=== PATIENT | female | born 1935 | race Caucasian/White ===

== ENCOUNTER 2017-10-19 01:05 | Observation (INO) | payer OTHER ==
[~2017-10-19] VITALS: Ht 157.5 cm; Wt 61.7 kg
[~2017-10-19 01:05] MED LIST: AGGRENOX 25 MG1 EACH PO; VYTORIN 10-101 EACH PO
--- NOTE | 2017-10-19 14:48 | Operative Report ---
Operative/Inv Procedure Report Surgery Date: 10/19/17 Name of Procedure: Excision soft tissues face history of melanoma Fasciocutaneous flap forehead Fasciocutaneous flap right cheek Preparation wound bed nose separate and distinct from skin excisions for complete margins Pre-Operative Diagnosis: Nasal skin defect history of recent excisions for melanoma Post-Operative Diagnosis: Same Estimated Blood Loss: scant Surgeon/Class A Lineman: Francis Harris MD Anesthesia: general endotracheal tube Operative/Procedure Note Note: The patient was counseled extensively including numerous phone calls and office visits as well as her daughter in regards to the procedure the alternatives the risks and the excess expectations as relates to her request for surgical intervention to reconstruct a absent nasal skin envelope of the nose. Patient has had recently undergone further biopsies forearm melanoma in situ. We discussed the reconstructive plan today with the additional risks of failure either part or all of the flap definitely visible scarring possibly unsightly or symptomatic numbness in the area of surgery pain bleeding infection need for additional surgery and recurrence we discussed the 2-3 stage plan of a paramedian forehead flap, and a right-sided cheek advancement flap. Patient is aware this will be at least 2 if not 3 stages. Informed consent was signed. She was taken to the operating room placed supine on the table. Venodyne boots are placed and then general anesthesia was established intravenous antibiotics were given. Face was prepped and draped in usual sterile fashion. Was placed on the forehead and tested for rotational length. Used to Doppler the signal in the base of the 1.5 cm wide pedicle. It was kept out of the hairbearing skin and the flap was elevated distal to proximal with a transition from subcutaneous to subperiosteal 2 cm from the brow. She was adequate the color was good. Tension was then turned to the right cheek where a cheek advancement was begun from the inferior portion of the nasal labial fold up the side well and in the cheek eyelid junction extending up to the temporal region. Subcutaneous dissection was carried out. The medial end of the flap consisting of margin as well as scar was further excised. A few basting sutures were placed in the flap to hold it in position to deeper tissues. A Daniel's triangle was removed at the inferior portion of the nasal labial fold and in the temporal area. Additional debridement was carried out of the wound bed in preparation for the flap. For the tissue was excised for insetting including a nasal subunit approach. Distal end of the flap and it was inset. Sutures were placed in summary removed to preserve flow 5-0 chromic suture placed in the skin excision of the cheek advancement flap forehead was closed with 2 layers of sutures with a small portion remaining open for secondary intention. There was absolutely no sure on the pedicle during closure. Further debridement was carried out laterally where scar had encroached on the side wall. Dressings were placed with good flap color.
--- NOTE | 2017-10-19 17:28 | History & Physical ---
Zulma Maninng 10/19/17 5997: General Information and HPI MD Statement: I have seen and personally examined KEV PERALTA and documented this H&P. The patient is a 81 year old F who presented with a patient stated chief complaint of [EKG change]. Source of Information: patient, old records Exam Limitations: no limitations History of Present Illness: Ms. 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 Batista prior to this admission, was found to have some EKG change was PVCs in PACU. During our clinical interaction, patient denied any shortness of breath/chest pain/palpitation, however, and that she had arrhythmia history for years, and may feel palpitations episodically, and has been self resolving. Patient had never been worked up on this. Patient was recently treated by ER of outside hospital for acute colitis with antibiotics and completed course. Patient was diagnosed with TIA, was loss of partial visual field, and she was put on Aggrenox since then, however she was stopped for 3 days prior to surgery without acknowledging her primary care physician. Patient denied fever/night sweat/weight change/mood change/insomnia, dietary/ appetite change. Patient denied cough/SOB/Abdominal pain, bowel movement/urinary abnormality, or other skin/musculoskeletal/neurological disorders. Allergies/Medications Allergies: Coded Allergies: No Known Allergies (10/18/17) Home Med list Dipyridamole W/ Aspirin (Aggrenox 25 MG-200 MG Capsule) 25 MG-200 MG CPMP.12HR 1 CAP PO BID BLOOD THINNER (Reported) Ezetimibe/Simvastatin (Vytorin 10-10 MG Tablet) 10 MG-10 MG TABLET 1 TAB PO DAILY CHOLESTEROL (Reported) Past History Travel History Traveled to [place] past 21 day No Medical History Neurological: TIA, hx of visual field loss 2/2 TIA Cardiovascular: Arrythmias Cancer(s): melanoma Surgical History Surgical History: S/p melanoma resection w/ skin graft 10/19/2017 Past Family/Social History Psychosocial History Smoking Status: Never Smoked ETOH Use: occasional use Illicit Drug Use: denies illicit drug use Review of Systems Review of Systems Constitutional: Reports: see HPI. Exam & Diagnostic Data Last 24 Hrs of Vital Signs/I&O Vital Signs Date Time Temp Pulse Resp B/P B/P Pulse O2 O2 Flow FiO2 Mean Ox Delivery Rate 10/19 1848 97.6 65 18 150/84 93 Room Air 10/19 1838 Room Air Physical Exam General Appearance Alert, Oriented X3, Cooperative, No Acute Distress Skin No Rashes, No Breakdown Skin Temp/Moisture Exam: Warm/Dry Sepsis Skin Exam (color): Normal for Ethnicity HEENT s/p melanoma resection w/ skin graft on nose and forehead Neck Supple, No JVD Cardiovascular regular rate w/ PVCs on auscultation Lungs Clear to Auscultation, Normal Air Movement Abdomen Normal Bowel Sounds, Soft, No Tenderness Neurological Normal Speech, Strength at 5/5 X4 Ext Extremities No Cyanosis, No Edema, Normal Pulses Last 24 Hrs of Labs/Luis Manuel: Laboratory Tests 10/19/17 1900: Sodium Pending, Potassium Pending, Chloride Pending, Carbon Dioxide Pending, Anion Gap Pending, BUN Pending, Creatinine Pending, BUN/Creatinine Ratio Pending , CBC w Diff NO MAN DIFF REQ, RBC 3.61 L, MCV 96.2, MCH 31.3 H, MCHC 32.5 L, RDW 14.0, MPV 8.2, Gran % 96.3 H, Lymphocytes % 3.5 L, Monocytes % 0.2 L, Eosinophils % 0, Basophils % 0, Absolute Granulocytes 12.9 H, Absolute Lymphocytes 0.5 L, Absolute Monocytes 0 L, Absolute Eosinophils 0, Absolute Basophils 0 Assessment/Plan Assessment: Ms. 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 Batista prior to this admission, was found to have some EKG change was PVCs in PACU. During our clinical interaction, patient denied any shortness of breath/chest pain/palpitation, however, and that she had arrhythmia history for years, and may feel palpitations episodically, and has been self resolving. Patient had never been worked up on this. Patient was recently treated by ER of outside hospital for acute colitis with antibiotics and completed course. Patient was diagnosed with TIA, was loss of partial visual field, and she was put on Aggrenox since then, however she was stopped for 3 days prior to surgery without acknowledging her primary care physician. Patient denied fever/night sweat/weight change/mood change/insomnia, dietary/ appetite change. Patient denied cough/SOB/Abdominal pain, bowel movement/urinary abnormality, or other skin/musculoskeletal/neurological disorders. On admission, Vitals: Stable All labs has been pending -EKG: SVT/PVCs on monitor postop Problem list #EKG change w/ SVTs/PVCs #s/p Melanomas resection/skin grafting Post-op day 0 #Hx of TIA/retinal clot Plan -Placing observation on telemetry overnight surgeon) over the phone, that he would suggest to hold Aggrenox for 2 weeks post surgery as patient has stopped taking Aggrenox 3 days before surgery already, however will defer the final decision to the medical team based on the risks/benefits of stopping Aggrenox or medical standpoint. -Tigan as needed for nausea vomiting, to avoid QTc elongation/potential use of sotalol. DVT prophylaxis Heparin + ALPS Heart healthy diet Full Code As Ranked By This Provider Problem List: 1. Skin melanoma 2. PVC (premature ventricular contraction) Core Measures/Misc (04/09) Acute Coronary Syndrome ACS Diagnosis: No Congestive Heart Failure Congestive Heart Failure Diagnosis No Cerebrovascular Accident CVA/TIA Diagnosis: No VTE (View Protocol) VTE Risk Factors Age>40 No Mechanical VTE Prophylaxis d/t N/A MechProphylax Ordered No VTE Pharm Prophylaxis d/t NA PharmProphylax ordered Sepsis (View protocol) Sepsis Present: No LovecarlosMakedasreekanth 10/19/17 1812: Resident Review Statement Resident Statement: examined this patient, amended to note Other Findings: Ms Peralta is a 81 year old woman w/ a PMHx of CVA ( 15 yrs ago-currently on Aggrenox ), HTN, and HLD came in w/ a chief concern of flap reconstruction of melanoma and was found to have paroxysms of irregularly irregular rhythm-narrow complexes suggestive of SVT or paroxysmal atrial fibrillation after she was undergoing postoperative care in PACU. She did not have any chest pain, lightheadedness, palpitations at that time. Vitals remained stable at the time. Reported to have abnormal rhythm in the last 10 years, which was perceived as palpitations with each episode lasting for less than 30 seconds. She did not get evaluated by a produce inspector so far. Did not have any chest pain, dyspnea, lightheadedness or any other symptoms at that time. She was recently treated for presumed colitis as an outpatient with Augmentin and Flagyl. Reported decreased by mouth intake in the last few weeks, which improved gradually. Reported occasional diarrhea which is improving. No fever, cough, dysuria, pedal edema was noted. At the time of [id number] 97.2, blood pressure 162/61, heart rate 74, pulse ox 95% on room air. General Exam: AAOx3, No acute distress, Skin: No rashes, skin incision extending from left side of cheek upto the left eye, and horizontally extending upto the left eyt outer canthus;HEENT: PERRLA, EOMI;Neck: Supple, No JVD, No cervical lymphadenopathy;CVS: Reg Rate, Normal S1,S2, No MGR; Resp: Normal air entry, no ronchi/rales;Abdomen: Soft, No tenderness, Normal Bowel Sounds;Neuro: Normal Speech, Strength 5/5 b/l x 4 extremities, Sensation intact, CN III-XII NL, Reflexes 2+;Extremities: No cyanosis, no pedal edema. Labs not drawn at the time of admission. EKG revealed irregularly irregular narrow complexes, and multiple PVCs, with normal sinus rhythm. No ST-T wave changes noted. Problem list: #1 irregularly irregular narrow complexes #2 MAT #3 multiple PVCs #4 status post melanoma surgery #5 history of CVA #6 history of hyperlipidemia Etiology for her arrhythmia, which is irregularly irregular narrow complex is likely multifocal atrial tachycardia, atrial fibrillation or SVT. If this irregular rhythm is age-related or due to a precipitating cause is unclear at this time. She needs an evaluation of electrolytes carefully, and look for infectious source. Other etiologies such as thyroid abnormality could be possible. Plan: #1 admit the patient to telemetry to monitor for rhythm changes. #2 serial electro-cardiograms, cardiac enzymes every 8 hourly. #3 defer the decision to the produce inspector to start any antiarrhythmic at this time. #4 continue Aggrenox, and anticoagulation with subcutaneous heparin only. Discussed with Dr. Batista, that there is no surgical contraindication to start Aggrenox at this time, given history of retinal artery clot in the past. #5 defer the decision to start any anticoagulant such as IV heparin to the produce inspector. #6 echocardiogram #7 pain control with Tylenol 3 and IV morphine #8 for wound care management with bacitracin (avoid around the eye area) and neomycin with dexamethasone around the eye area. Clear instructions discussed with nursing staff. #9 normal saline at 75 mils an hour one bag Housekeeping: DVT prophylaxis-subcutaneous heparin Pain management-Tylenol 3 and IV morphine Full code. Ramiro MARTINEZ,Wanda 10/19/17 1818: Attending MD Review Statement Attending Statement Attending MD Statement: examined this patient, discuss w/resident/PA/WELLNESS NURSE, agreed w/resident/PA/WELLNESS NURSE, discussed with family, reviewed EMR data (avail), discussed with nursing, amended to note Attending Assessment/Plan: 81-year-old female with past medical history significant for recent systolic hypertension, hyperlipidemia, history off multiple melanomas on the nasal bridge status post resection in the past and now today status post skin flap surgery with Dr. Batista. Patient is now placed on telemetry observation under medicine secondary to seeing arrhythmias on the monitor postoperatively. Patient herself denies any shortness of breath. She claims that she has these arrhythmia history for many years. She sometimes feels them coming, they last for a few moments and then they go away. She experienced almost 4-5 times a year but has never seeked any medical attention for this. She only takes Aggrenox and Vytorin as her regular medications. She was recently diagnosed with acute colitis and was treated with some antibiotics. She also has a history of right hip repair as well as laparoscopic cholecystectomy and cataract surgery. 15 years ago she was diagnosed with TIA and that's why she's on Aggrenox since then. She did stop taking her Aggrenox from last 3 days due to the surgery but this was not discussed with her doctor. She currently denies any chest pain, shortness of breath. She did feel some stuttering in the chest when that SVT episode occurs. vitals in PACU were stable. On exam; aox3, nad. cv; s1,s2, rrr resp; clear abd; soft, nt, bs+ ext; no edema skin: + dressing on face, nose and forehead. labs pending A/P; 81-year-old female with past medical history significant for recent systolic hypertension, hyperlipidemia, history off multiple melanomas on the nasal bridge status post resection in the past and now today status post skin flap surgery with Dr. Batista postop day #0 today. Patient is now placed on telemetry observation under medicine secondary to seeing arrhythmias (NSVT) on the monitor postoperatively. She will be monitored on telemetry. She has been seen by cardiology Dr. Manzo. Please follow the consult. Please discuss with produce inspector if patient needs to be started on any beta blockers. Please check her electrolytes to make sure that her potassium and magnesium are okay. Patient should get echocardiogram. Serial EKGs should be obtained. Please obtain troponins. Please continue her ointments as recommended by Dr. Batista. Please check with plastic surgeon and produce inspector if Aggrenox can be resumed today or can be started tomorrow. Continue her statin. Gentle IV hydration [address] Batista for further care off the surgery. DVt px; hep sq. D/W daughter at bedside.
[2017-10-19 18:49] VITALS: BP 150/84
[2017-10-19 19:55] LABS: ABSOLUTE BASOPHIL COUNT 0 /CUMM (0.0-0.2); ABSOLUTE EOSINOPHIL COUNT 0 /CUMM (0.0-0.7); ABSOLUTE GRANULOCYTE CT 12.9 /CUMM (1.4-6.5); ABSOLUTE LYMPH COUNT 0.5 /CUMM (1.2-3.4); ABSOLUTE MONOCYTE COUNT 0 /CUMM (0.10-0.60); BASOPHIL % 0 % (0.0-2.0); EOSINOPHIL % 0 % (0-5); HEMATOCRIT 34.7 % (37-47); MEAN CORPUSCULAR HGB 31.3 PG (27.0-31.0); MEAN CORPUSCULAR HGB CONC 32.5 G/DL (33.0-37.0); MEAN CORPUSCULAR VOLUME 96.2 FL (81.0-99.0); MEAN PLATELET VOLUME 8.2 FL (7.4-10.4); PLATELET COUNT 305 /CUMM (130-400); RED BLOOD CELL CT 3.61 /CUMM (4.20-5.40); WHITE BLOOD CELL COUNT 13.4 /CUMM (4.8-10.8)
[2017-10-19 20:06] LABS: GRANULOCYTE % 96.3 % (42.2-75.2)
--- NOTE | 2017-10-19 21:02 | Cons- Cardiology ---
General Information and HPI Consulting Request Date of Consult: 10/19/17 Requested By: Steven MARTINEZ,Francis Davis History of Present Illness: This patient is a 81 year old female with history of hypertension, dyslipidemia, CVA and retinal clot who underwent facial surgery today for a melenoma. Post operatively, this patient was noted to have multiple episodes of an SVT that was irregularly irregular consistent with brief paroxysms of atrial fibrillation. She also has multiple PVC's. The patient cannot feel any of this ectopy even when it is brought to her attention. At her baseline, she is mildly active for her age. She denies any chest pain, pressure, tightness, shortness fo breath or lightheadedness but does have rare palpitations. Allergies/Medications Allergies: Coded Allergies: No Known Allergies (10/18/17) Home Med List: Dipyridamole W/ Aspirin (Aggrenox 25 MG-200 MG Capsule) 25 MG-200 MG CPMP.12HR 1 CAP PO BID BLOOD THINNER (Reported) Ezetimibe/Simvastatin (Vytorin 10-10 MG Tablet) 10 MG-10 MG TABLET 1 TAB PO DAILY CHOLESTEROL (Reported) Review of Systems Review of Systems: A review of systems is unremarkable. Past History Travel History Traveled to [place] past 21 day No Medical History Blood Transfusion Hx: No Neurological: TIA, hx of visual field loss 2/2 TIA Cardiovascular: hypertension, hyperlipidemia, Arrythmias Cancer(s): melanoma Surgical History Surgical History: S/p melanoma resection w/ skin graft 10/19/2017 Psychosocial History Where Do You Live? Home Smoking Status: Never Smoked ETOH Use: occasional use Illicit Drug Use: denies illicit drug use Exam & Diagnostic Data Vital Signs and I&O Vital Signs Date Time Temp Pulse Resp B/P B/P Pulse O2 O2 Flow FiO2 Mean Ox Delivery Rate 10/19 1848 97.6 65 18 150/84 93 Room Air 10/19 1838 Room Air Intake & Output 10/19 1600 10/19 0800 10/19 0000 10/18 1600 10/18 0800 10/18 0000 Intake Total Output Total Balance Patient 118 lb Weight Physical Exam: General: WD/WN female in NAD; alert and oriented x 3 HEENT: NC, bandaged with post operative surgical scars, PERRL EOMI Neck: no JVD, 2+ right carotic bruit, no bruit on the left Heart: RRR with ectopy Lungs: clear bilaterally ABdomen: soft, NT, +ve bowel sounds Extremities: no edema Assessment/Plan Assessment/Plan * This patient has frequent PVC's in addition to recurrent bouts of an irregularly irregular rhythm on rhythm strips that is likely paroxysms of atrial fibriillation. We will admit to telemetry and check a troponin, TSH and free T4. Obtain an echocardiogram to assess her overall EF. Check a twelve lead ECG. * Begin Sotolol 80mg BID to help maintain a sinus rhyhm, suppress PVC's and also to control her blood pressure. We would like to avoid antiocoagulation in the immediate post operative period. Consult Acknowledgment - Thank you for your consult request.
[2017-10-19 22:53] VITALS: BP 138/66
[2017-10-20 06:47] VITALS: BP 132/60
--- NOTE | 2017-10-20 07:54 | PN-Observation ---
Observation Note Observation Note _ I have personally examined KEV LEON. her disposition is uncertain at this time. Before a determination can be made, she requires continued observation for the following reasons [EKG changes]. Assessment/Plan Medical Assessment: Ms. 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 Batista prior to this admission, was found to have some EKG change was PVCs in PACU. During our clinical interaction, patient denied any shortness of breath/chest pain/palpitation, however, and that she had arrhythmia history for years, and may feel palpitations episodically, and has been self resolving. Patient had never been worked up on this. Patient was recently treated by ER of outside hospital for acute colitis with antibiotics and completed course. Patient was diagnosed with TIA, was loss of partial visual field, and she was put on Aggrenox since then, however she was stopped for 3 days prior to surgery without acknowledging her primary care physician. Patient denied fever/night sweat/weight change/mood change/insomnia, dietary/ appetite change. Patient denied cough/SOB/Abdominal pain, bowel movement/urinary abnormality, or other skin/musculoskeletal/neurological disorders. On admission, Vitals: Stable All labs has been pending -EKG: SVT/PVCs on monitor postop Problem list #EKG change w/ SVTs/PVCs #s/p Melanomas resection/skin grafting Post-op day 0 #Hx of TIA/retinal clot Plan -Placing observation on telemetry overnight and recheck EKG in the p.m. surgeon) Discussed with Dr. Batista over the phone, that he would suggest to hold Aggrenox for 2 weeks post surgery as patient has stopped taking Aggrenox 3 days before surgery already, however will defer the final decision to the medical team based on the risks/benefits of stopping Aggrenox or medical standpoint. -Tigan as needed for nausea vomiting, to avoid QTc elongation/potential use of sotalol. DVT prophylaxis Heparin + ALPS Heart healthy diet Full Code Problem List: 1. PVC (premature ventricular contraction) 2. Skin melanoma Subjective Follow-up For: #irregularly irregular narrow complexes #MAT #multiple PVCs #status post melanoma surgery #history of CVA/Retinal clot on Aggrenox #history of hyperlipidemia Tele-Events Since Last Visit: NSR mostly, with PVCs Subjective: No overnight event. Patient endorsed post-op pain but denied chest pain/ palpitation, etc. Review of Systems Constitutional: Reports: see HPI. Objective Last 24 Hrs of Vital Signs/I&O Vital Signs Date Time Temp Pulse Resp B/P B/P Pulse O2 O2 Flow FiO2 Mean Ox Delivery Rate 10/20 0948 65 148/70 10/20 0800 Room Air 10/20 0647 99.5 75 20 132/60 93 Room Air 10/19 2253 97.8 68 18 138/66 94 Room Air 10/19 1849 97.6 65 18 150/84 93 Room Air 10/19 1838 Room Air Intake & Output 10/20 1600 10/20 0800 10/20 0000 Intake Total 700 550 Output Total 550 200 Balance -550 700 350 Intake, IV 600 310 Intake, Oral 100 240 Output, Urine 550 200 Patient 63.503 kg 63.503 kg Weight Weight Bed scale Measurement Method Physical Exam General Appearance: Alert, Oriented X3, Cooperative, No Acute Distress HEENT: s/p melanoma resection in surgical dressing Cardiovascular: Regular Rate Lungs: Clear to Auscultation, Normal Air Movement Abdomen: Soft, No Tenderness Neurological: Normal Speech Extremities: No Cyanosis, No Edema, Normal Pulses Current Medications: Current Medications Sig/Beverley Start time Last Medication Dose Route Stop Time Status Admin Acetaminophen 1,000 MG .STK-MED ONE 10/19 1635 DC IV 10/19 1636 Acetaminophen/ 1 TAB Q6P PRN 10/19 1900 AC 10/20 Codeine Phosphate PO 0832 Atorvastatin Calcium 20 MG 1700 10/20 1700 AC PO Bacitracin 1 ALEXANDRO DAILY 10/20 1000 AC 10/20 TOP 0949 Cefazolin Sodium 2,000 MG ONCE 10/19 0000 DC IV 10/19 2359 Dipyridamole/Aspirin 1 CAP BID 10/19 2200 CAN PO Dipyridamole/Aspirin 1 CAP BID 10/19 2200 AC 10/20 PO 0831 Ezetimibe 10 MG DAILY 10/20 1000 AC 10/20 PO 0831 Heparin Sodium 5,000 UNIT Q8 10/19 2200 CAN (Porcine) SC Heparin Sodium 5,000 UNIT Q8 10/19 2200 AC 10/20 (Porcine) SC 0532 Morphine Sulfate 1 MG ONCE ONE 10/20 1115 DC 10/20 IV 10/20 1116 1113 Morphine Sulfate 2 MG Q6P PRN 10/19 1900 AC 10/19 IV 1901 Neomycin/Polymyxin/ 1 ALEXANDRO DAILY 10/19 2029 AC 10/20 Dexamethasone OPH 0949 Patient Medication 1 ED ONE ONE 10/20 1230 DC Teaching ED 10/20 1231 Sodium Chloride 1,000 ML Q13H 10/19 1830 DC 10/19 IV 10/20 0729 1858 Sotalol HCl 80 MG BID 10/20 1000 AC 10/20 PO 0949 Trimethobenzamide HCl 200 MG TID PRN 10/20 1999 AC 10/19 IM 2008 Last 24 Hrs of Labs/Mics: Laboratory Tests 10/20/17 0640: Troponin I Cancelled 10/20/17 0640: Anion Gap 8, Estimated GFR > 60, BUN/Creatinine Ratio 27.1 H, Troponin I < 0.01 , CBC w Diff NO MAN DIFF REQ, RBC 3.18 L, MCV 95.3, MCH 32.3 H, MCHC 33.8, RDW 14.5, MPV 8.4, Gran % 81.5 H, Lymphocytes % 12.3 L, Monocytes % 5.9, Eosinophils % 0, Basophils % 0.3, Absolute Granulocytes 8.6 H, Absolute Lymphocytes 1.3, Absolute Monocytes 0.6, Absolute Eosinophils 0, Absolute Basophils 0 10/20/17 0220: Urine Color YEL, Urine Clarity CLEAR, Urine pH 5.5, Ur Specific [place] >= 1.030 , Urine Protein NEG, Urine Ketones NEG, Urine Nitrite NEG, Urine Bilirubin NEG, Urine Urobilinogen 0.2, Ur Leukocyte Esterase NEG, Ur Microscopic EXAM NOT REQUIRED, Urine Hemoglobin NEG, Urine Glucose 100 H 10/19/17 2300: Troponin I < 0.01 10/19/17 1900: Anion Gap 11, Estimated GFR > 60, BUN/Creatinine Ratio 30.0 H, Magnesium 1.8, TSH &T3 &Free T4 Intrp 1.370, CBC w Diff NO MAN DIFF REQ, RBC 3.61 L, MCV 96.2, MCH 31.3 H, MCHC 32.5 L, RDW 14.0, MPV 8.2, Gran % 96.3 H, Lymphocytes % 3.5 L, Monocytes % 0.2 L, Eosinophils % 0, Basophils % 0, Absolute Granulocytes 12.9 H, Absolute Lymphocytes 0.5 L, Absolute Monocytes 0 L, Absolute Eosinophils 0, Absolute Basophils 0
[2017-10-20 08:10] LABS: ABSOLUTE BASOPHIL COUNT 0 /CUMM (0.0-0.2); ABSOLUTE EOSINOPHIL COUNT 0 /CUMM (0.0-0.7); ABSOLUTE GRANULOCYTE CT 8.6 /CUMM (1.4-6.5); ABSOLUTE LYMPH COUNT 1.3 /CUMM (1.2-3.4); ABSOLUTE MONOCYTE COUNT 0.6 /CUMM (0.10-0.60); BASOPHIL % 0.3 % (0.0-2.0); EOSINOPHIL % 0 % (0-5); GRANULOCYTE % 81.5 % (42.2-75.2); HEMATOCRIT 30.4 % (37-47); MEAN CORPUSCULAR HGB 32.3 PG (27.0-31.0); MEAN CORPUSCULAR HGB CONC 33.8 G/DL (33.0-37.0); MEAN CORPUSCULAR VOLUME 95.3 FL (81.0-99.0); MEAN PLATELET VOLUME 8.4 FL (7.4-10.4); PLATELET COUNT 260 /CUMM (130-400); RBC DISTRIBUTION WIDTH 14.5 % (11.5-14.5); RED BLOOD CELL CT 3.18 /CUMM (4.20-5.40); WHITE BLOOD CELL COUNT 10.5 /CUMM (4.8-10.8)
[2017-10-20 09:48] VITALS: BP 148/70
--- NOTE | 2017-10-20 12:16 | RADIOLOGY REPORT ---
EXAMINATION: XR PORTABLE CHEST CLINICAL INFORMATION: Rule out any pneumonia. Patient states sore throat from intubation. Postop facial surgery. Patient denies heart or lung problems. COMPARISON: None TECHNIQUE: Portable AP semierect view of the chest was obtained. FINDINGS: EKG these overlie the chest. Cardiomediastinal silhouette is within normal limits in size. Lungs bilaterally are symmetrically expanded. There is some patchy reticular opacities in the lung bases bilaterally, most likely related to atelectasis. No definite focal dense consolidation or air bronchograms seen. No significant effusion or pneumothorax is seen. Mild convex right thoracic scoliosis is noted. IMPRESSION: Bibasilar opacities are noted, most consistent with atelectatic changes. No definite focal pneumonia. Consider repeat PA and lateral view of the chest is symptoms persist and clinical suspicion for pneumonia remains high.
--- NOTE | 2017-10-20 13:28 | PN- Att Addend ---
Attending Addendum Attending Brief Note Patient seen and examined. Plan of care discussed with the medical team and the patient. Available lab work and radiology test reports were reviewed. Exam: General: Patient awake alert oriented without any distress CVS: S1 plus S2 without any murmur or gallops Chest: Few scattered crepitation without any wheeze. There is no respiratory distress. Abdomen: Soft non-tender, bowel sound present, no guarding or rebound C S S REPRESENTATIVE: Awake alert oriented without any focal neuro deficit and follows commands appropriately Extremities: No edema; no clubbing or cyanosis noted Problem list: * irregularly irregular narrow complexes with PVCs, possible MAT * status post melanoma surgery * history of CVA * history of hyperlipidemia * Rule out AK- troponin so far negative * Mild dehydration with increased BUN Plan * Continue telemetry monitoring * Agree with checking echocardiogram * Await further cardiology input to decide whether patient will be discharged today or her observation be extended * Continue to ambulate * Continue sotalol * Encourage oral liquids Current Medications Sig/Beverley Start time Last Medication Dose Route Stop Time Status Admin Acetaminophen 1,000 MG .STK-MED ONE 10/19 1635 DC IV 10/19 1636 Acetaminophen/ 1 TAB Q6P PRN 10/19 1900 AC 10/20 Codeine Phosphate PO 0832 Atorvastatin Calcium 20 MG 1700 10/20 1700 AC PO Bacitracin 1 ALEXANDRO DAILY 10/20 1000 AC 10/20 TOP 0949 Cefazolin Sodium 2,000 MG ONCE 10/19 0000 DC IV 10/19 2359 Dipyridamole/Aspirin 1 CAP BID 10/19 2200 CAN PO Dipyridamole/Aspirin 1 CAP BID 10/19 2200 AC 10/20 PO 0831 Ezetimibe 10 MG DAILY 10/20 1000 AC 10/20 PO 0831 Heparin Sodium 5,000 UNIT Q8 10/19 2200 CAN (Porcine) SC Heparin Sodium 5,000 UNIT Q8 10/19 2200 AC 10/20 (Porcine) SC 0532 Morphine Sulfate 1 MG ONCE ONE 10/20 1115 DC 10/20 IV 10/20 1116 1113 Morphine Sulfate 2 MG Q6P PRN 10/19 1900 AC 10/19 IV 1901 Neomycin/Polymyxin/ 1 ALEXANDRO DAILY 10/19 2030 AC 10/20 Dexamethasone OPH 0949 Patient Medication 1 ED ONE ONE 10/20 1230 DC Teaching ED 10/20 1231 Sodium Chloride 1,000 ML Q13H 10/19 1830 DC 10/19 IV 10/20 0729 1858 Sotalol HCl 80 MG BID 10/20 1000 AC 10/20 PO 0949 Trimethobenzamide HCl 200 MG TID PRN 10/20 1999 AC 10/19 IM 2008 Laboratory Tests 10/20/17 0640: Troponin I Cancelled 10/20/17 0640: Anion Gap 8, Estimated GFR > 60, BUN/Creatinine Ratio 27.1 H, Troponin I < 0.01 , CBC w Diff NO MAN DIFF REQ, RBC 3.18 L, MCV 95.3, MCH 32.3 H, MCHC 33.8, RDW 14.5, MPV 8.4, Gran % 81.5 H, Lymphocytes % 12.3 L, Monocytes % 5.9, Eosinophils % 0, Basophils % 0.3, Absolute Granulocytes 8.6 H, Absolute Lymphocytes 1.3, Absolute Monocytes 0.6, Absolute Eosinophils 0, Absolute Basophils 0 10/20/17 0220: Urine Color YEL, Urine Clarity CLEAR, Urine pH 5.5, Ur Specific [place] >= 1.030 , Urine Protein NEG, Urine Ketones NEG, Urine Nitrite NEG, Urine Bilirubin NEG, Urine Urobilinogen 0.2, Ur Leukocyte Esterase NEG, Ur Microscopic EXAM NOT REQUIRED, Urine Hemoglobin NEG, Urine Glucose 100 H 10/19/17 2300: Troponin I < 0.01 10/19/17 1900: Anion Gap 11, Estimated GFR > 60, BUN/Creatinine Ratio 30.0 H, Magnesium 1.8, TSH &T3 &Free T4 Intrp 1.370, CBC w Diff NO MAN DIFF REQ, RBC 3.61 L, MCV 96.2, MCH 31.3 H, MCHC 32.5 L, RDW 14.0, MPV 8.2, Gran % 96.3 H, Lymphocytes % 3.5 L, Monocytes % 0.2 L, Eosinophils % 0, Basophils % 0, Absolute Granulocytes 12.9 H, Absolute Lymphocytes 0.5 L, Absolute Monocytes 0 L, Absolute Eosinophils 0, Absolute Basophils 0 Vital Signs Date Time Temp Pulse Resp B/P B/P Pulse O2 O2 Flow FiO2 Mean Ox Delivery Rate 10/20 0948 65 148/70 10/20 0800 Room Air 10/20 0647 99.5 75 20 132/60 93 Room Air 10/19 2253 97.8 68 18 138/66 94 Room Air 10/19 1849 97.6 65 18 150/84 93 Room Air 10/19 1838 Room Air Intake & Output 10/20 1600 10/20 0800 10/20 0000 Intake Total 700 550 Output Total 550 200 Balance -550 700 350 Intake, IV 600 310 Intake, Oral 100 240 Output, Urine 550 200 Patient 140 lb 140 lb Weight Weight Bed scale Measurement Method Chest x-ray October 20 Bibasilar opacities are noted, most consistent with atelectatic changes. No definite focal pneumonia.
[2017-10-20 14:11] VITALS: BP 120/60
--- NOTE | 2017-10-20 14:45 | Patient Discharge Instructions ---
Discharge Instructions General Discharge Information Special Instructions: - Please follow up with your plastic surgeon Dr. Arthur for your surgical site care. - Please follow up with your site technician Dr. Manzo within 1-2 weeks of discharge. - Please follow up with your primary care physician within 1-2 weeks of discharge. Inform your primary care physician of this admission to [facility]. - Continue your current medications per discharge instructions. - Please watch for these problems: Fever, Chills, Nausea, Vomiting, Shortness of Breath, Productive Cough, Chest Pain/Discomfort, Abdominal Pain, Active Bleeding or Bloody urine/stool. Diet Continue normal diet: Yes Activity Full Activity/No Limits: Yes Acute Coronary Syndrome Inclusion Criteria At DC or during hospital stay patient has or had the following: ACS DIAGNOSIS No Discharge Core Measures Meds if any: Prescribed or Continued at Discharge Meds if any: NOT Prescribed or Continued at Discharge Congestive Heart Failure Inclusion Criteria At DC or during hospital stay patient has or had the following: CHF DIAGNOSIS No Discharge Core Measures Meds if any: Prescribed or Continued at Discharge Meds if any: NOT Prescribed or Continued at Discharge Cerebrovascular accident Inclusion Criteria At DC or during hospital stay patient has or had the following: CVA/TIA Diagnosis No Discharge Core Measures Meds if any: Prescribed or Continued at Discharge Meds if any: NOT Prescribed or Continued at Discharge Venous thromboembolism Inclusion Criteria VTE Diagnosis No VTE Type NONE VTE Confirmed by (Test) NONE Discharge Core Measures - Per Current guidelines, there needs to be overlap - treatment for the first 5 days of Warfarin therapy. - If discharged on Warfarin prior to 5 days of - overlap therapy, the patient will need to be - assessed for post discharge needs including - *Post discharge parental anticoagulation - *Warfarin and/or parental anticoagulation education - *Follow up date to check INR post discharge At least 5 days overlap therapy as Inpatient No Meds if any: Prescribed or Continued at Discharge Note: Overlap Therapy is Warfarin and Anticoagulant Meds if any: NOT Prescribed or Continued at Discharge
--- NOTE | 2017-10-20 15:02 | PN- Cardiology ---
Subjective Subjective: * no symptoms of chest discomfort, shortness of breath, lightheadedness or palpitations * frequent PVC's noted on telemetry Objective Vital Signs and I&Os Vital Signs Date Time Temp Pulse Resp B/P B/P Pulse O2 O2 Flow FiO2 Mean Ox Delivery Rate 10/20 1411 99.3 64 18 120/60 94 Room Air 10/20 0948 65 148/70 10/20 0800 Room Air 10/20 0647 99.5 75 20 132/60 93 Room Air 10/19 2253 97.8 68 18 138/66 94 Room Air 10/19 1849 97.6 65 18 150/84 93 Room Air 10/19 1838 Room Air Intake & Output 10/20 1600 10/20 0800 10/20 0000 10/19 1600 10/19 0800 10/19 0000 Intake Total 1060.25 700 550 Output Total 1050 200 Balance 10.25 700 350 Intake, IV 160.25 600 310 Intake, Oral 900 100 240 Output, Urine 1050 200 Patient 140 lb 140 lb Weight Weight Bed scale Measurement Method Physical Exam: General: WD/WN female in NAD; alert and oriented x 3 HEENT: NC, bandaged with post operative surgical scars, PERRL EOMI Neck: no JVD, 2+ right carotid bruit, no bruit on the left Heart: RRR with ectopy Lungs: clear bilaterally ABdomen: soft, NT, +ve bowel sounds Extremities: no edema Assessment/Plan Assessment/Plan * Doing better on Sotolol 80mg PO BID. The patient has moderate MR and TR with good LV function. In the setting of a normal EF she is unlikely to have a malignant ventricular dysrhythmia. * This patient had multiple brief episodes of an irregularly irregular rhythm on a rhythm strip with a somewhat difficult to read baseline. In that setting, I cannot be unequivocally convinced of atrial fibrillation although her history of hypertension and mitral regurgitation is certainly the setting for this dysrhythmia. In consideration of her recent surgery, I would not begin chronic anticoagulation unless there is clear evidence of atrial fibrillation. In addition, if the patient does have a tendency toward A. fib it may end up being well controlled on Sotolol 80mg BID which I would continue. She will need careful follow up in the office and I would check her renal function in a week since this drug is cleared by the kidneys. * In consideration of her copious PVC's and risk factors for heart disease, I think it is prudent to risk stratify her for myocardial ischemia with a stress test. She ruled out for an ND and has no active chest pain. This study can be done as an outpatient. * Okay to discharge to home with follow up in my office in one week. Would discharge on aggrenox, Sotolol 80mg BID, Atorvastatin 20mg daily and Lisinopril 5mg daily. Continue telemetry? No
[2017-10-20] MEDS ORDERED: BACITRACIN ZIN120 GM TOP ×2 (15:08→16:53)
[2017-10-20] MEDS ORDERED: BETAPACE80 MG PO (15:08)
[2017-10-20] MEDS ORDERED: ATORVASTATIN CA20 M1 PO (15:08)
[2017-10-20] MEDS ORDERED: LISINOPRIL5 M1 PO (15:12)
[2017-10-20 23:38] VITALS: BP 136/68
[2017-10-21 06:47] VITALS: BP 164/85
--- NOTE | 2017-10-21 08:00 | ECHOCARDIOGRAM REPORT ---
KEV PERALTA Age: 81 : 1935 Gender: F Exam Date: 10/20/2017 13:07 Exam Location: [place] Ht (in): 62 Wt (lb): 118 BSA: 1.53 BP: 132 / 60 Ordering Physician: Aleida Zhao MD Referring Physician: Aleida Zhao MD Technologist: Sohan Monge [facility] Room Number: [id number] Indications: ARRHYTHMIAS Rhythm: Sinus Technical Quality: good FINDINGS Left Ventricle Normal left ventricular size, wall thickness and systolic function with no obvious regional wall motion abnormalities. Normal left ventricular diastolic filling pattern for age. The ejection fraction is visually estimated at 55%. Right Ventricle The right ventricle is normal in size and function. Right Atrium The right atrium is normal in size. Left Atrium The left atrium is normal in size. The interatrial septum is intact. Mitral Valve The mitral valve is normal in structure and function. There is mild to moderate mitral regurgitation. Aortic Valve Structurally normal aortic valve without significant sclerosis or stenosis. There is no aortic regurgitation. Tricuspid Valve The tricuspid valve is normal in structure and function. There is mild tricuspid regurgitation. Pulmonary artery systolic pressure is normal. Pulmonic Valve Structurally normal pulmonic valve. There is no pulmonic regurgitation. Pericardium Normal pericardium without effusion. No pleural effusion. Great Vessels Normal aortic root dimension. The aortic arch and great vessels are well seen and are normal. CONCLUSIONS 1. Normal EF of 55%. 2. Mild to moderate mitral regurgitation. 3. Mild tricuspid regurgitation. Meet Manzo M.D. (Electronically Signed) Final Date: 21 October 2017 07:59 MEASUREMENTS (Male / Female) Normal Values 2D ECHO LV Diastolic Diameter PLAX 3.7 cm 4.2 - 5.9 / 3.9 - 5.3 cm LV Systolic Diameter PLAX 2.5 cm 2.1 - 4.0 cm LV Fractional Shortening PLAX 32.4 % 25 - 46 % LV Ejection Fraction 2D Teich 61.6 % IVS Diastolic Thickness 1.0 cm LVPW Diastolic Thickness 1.0 cm LV Relative Wall Thickness 0.5 LVOT Diameter 2.6 cm Aortic Root Diameter 2.9 cm LA Systolic Diameter LX 2.9 cm 3.0 - 4.0 / 2.7 - 3.8 cm LV Ejection Fraction MOD BP 52.4 % >= 55 % LV Cardiac Index MOD BP 1743.6 cm/minm LV Diastolic Length 4C 6.6 cm 6.9 - 10.3 cm LV Diastolic Area 4C 22.2 cm LV Diastolic Volume MOD 4C 62.0 cm LV Ejection Fraction MOD 4C 53.2 % LV Stroke Volume MOD 4C 33.0 cm LV Cardiac Index MOD 4C 1743.6 cm/minm LV Systolic Length 4C 5.3 cm LV Systolic Area 4C 13.6 cm LV Systolic Volume MOD 4C 29.0 cm LV Ejection Fraction MOD 2C 54.8 % LV Cardiac Index MOD 2C 1796.4 cm/minm LV Diastolic Volume 4C AL 63.9 cm 85 - 139 / 69 - 109 cm LV Systolic Volume 4C AL 29.4 cm LV Ejection Fraction 4C AL 54.0 % LV Stroke Volume 4C AL 34.5 cm LV Cardiac Index 4C AL 1821.3 cm/minm LV Ejection Fraction 2C AL 55.5 % LV Cardiac Index 2C AL 1812.5 cm/minm LA Volume 45.0 cm 18 - 58 / 22 - 52 cm DOPPLER AV Peak Velocity 128.0 cm/s AV Peak Gradient 6.6 mmHg LVOT Peak Velocity 112.0 cm/s LVOT Peak Gradient 5.0 mmHg AV Area Cont Eq pk 4.6 cm Mitral E Point Velocity 87.4 cm/s Mitral A Point Velocity 103.0 cm/s Mitral E to A Ratio 0.8 MV Deceleration Time 180.0 ms TR Peak Velocity 290.0 cm/s TR Peak Gradient 33.6 mmHg PV Peak Velocity 58.7 cm/s PV Peak Gradient 1.4 mmHg LV E' Lateral Velocity 9.4 cm/s Mitral E to LV E' Lateral Ratio 9.3 LV E' Septal Velocity 7.4 cm/s Mitral E to LV E' Septal Ratio 11.8
--- NOTE | 2017-10-21 10:32 | PN- Cardiology ---
Subjective Subjective: * No complaints. * Atrial tachycardia noted on her initial ECG with no other supraventricular dysrhythmias noted. She continues to have PVC's but they have lessened on Sotolol. * Normal EF of echo with mild TR and mild to moderate MR Objective Vital Signs and I&Os Vital Signs Date Time Temp Pulse Resp B/P B/P Pulse O2 O2 Flow FiO2 Mean Ox Delivery Rate 10/21 0647 98.9 57 20 164/85 92 10/20 2338 98.9 52 18 136/68 94 Room Air 10/20 1411 99.3 64 18 120/60 94 Room Air Intake & Output 10/21 1600 10/21 0800 10/21 0000 10/20 1600 10/20 0800 10/20 0000 Intake Total 395 063 5705.25 700 550 Output Total 1050 200 Balance 200 360 10.25 700 350 Intake, IV 160.25 600 310 Intake, Oral 200 360 900 100 240 Output, Urine 1050 200 Patient 136 lb 140 lb 140 lb Weight Weight Bed scale Bed scale Measurement Method Physical Exam: General: WD/WN female in NAD; alert and oriented x 3 HEENT: NC, bandaged with post operative surgical scars, PERRL EOMI Neck: no JVD, 2+ right carotid bruit, no bruit on the left Heart: RRR with ectopy Lungs: clear bilaterally ABdomen: soft, NT, +ve bowel sounds Extremities: no edema Assessment/Plan Assessment/Plan * Doing better on Sotolol 80mg PO BID. The patient has moderate MR and TR with good LV function. In the setting of a normal EF she is unlikely to have a malignant ventricular dysrhythmia. * This patient had multiple brief episodes of an irregularly irregular rhythm on a rhythm strip with a somewhat difficult to read baseline. In that setting, I cannot be unequivocally convinced of atrial fibrillation although her history of hypertension and mitral regurgitation is certainly the setting for this dysrhythmia. In consideration of her recent surgery, I would not begin chronic anticoagulation unless there is clear evidence of atrial fibrillation. In addition, if the patient does have a tendency toward A. fib it may end up being well controlled on Sotolol 80mg BID which I would continue. She will need careful follow up in the office and I would check her renal function in a week since this drug is cleared by the kidneys. * In consideration of her copious PVC's and risk factors for heart disease, I think it is prudent to risk stratify her for myocardial ischemia with a stress test. She ruled out for an RI and has no active chest pain. This study can be done as an outpatient. * Okay to discharge to home with follow up in my office in one week. Would discharge on aggrenox, Sotolol 80mg BID, Atorvastatin 20mg daily and Lisinopril 5mg daily. Continue telemetry? No
[2017-10-21] MEDS ORDERED: TYLENOL WITH C1 EACH PO (11:19)
[2017-10-21] MEDS ORDERED: LISINOPRIL5 M1 PO (11:19)
[2017-10-21] MEDS ORDERED: BETAPACE80 MG PO (11:19)
[2017-10-21] MEDS ORDERED: BACITRACIN ZIN120 GM TOP (11:19)
--- NOTE | 2017-10-21 11:20 | PN- Att Addend ---
Attending Addendum Attending Brief Note Patient seen and examined. Plan of care discussed with the medical team and the patient. Available lab work and radiology test reports were reviewed. Patient has no further arrhythmia. She denies any palpitation chest pain difficulty breathing or dizziness. She appears comfortable and is anxious to go home today. Exam: General: Patient awake alert oriented without any distress CVS: S1 plus S2 without any murmur or gallops Chest: Few scattered crepitation without any wheeze. There is no respiratory distress. Abdomen: Soft non-tender, bowel sound present, no guarding or rebound MD UROLOGIST: Awake alert oriented without any focal neuro deficit and follows commands appropriately Extremities: No edema; no clubbing or cyanosis noted; facial bandages are noted for recent surgery Problem list: * irregularly irregular narrow complexes with PVCs, possible MAT * status post melanoma surgery * history of CVA * history of hyperlipidemia * Rule out VT- troponin so far negative * Mild dehydration with increased BUN Plan * Plan for discharge home today * Continue sotalol at home * Please give prescription for Tylenol No. 3 total of 8 pills * Patient to continue applying bacitracin over the face wounds Current Medications Sig/Beverley Start time Last Medication Dose Route Stop Time Status Admin Acetaminophen/ 1 TAB Q6P PRN 10/19 1900 AC 10/21 Codeine Phosphate PO 0753 Atorvastatin Calcium 20 MG 1700 10/20 1700 AC 10/20 PO 1656 Bacitracin 1 ALEXANDRO DAILY 10/20 1000 AC 10/21 TOP 0754 Dipyridamole/Aspirin 1 CAP BID 10/19 2200 AC 10/21 PO 0753 Docusate Sodium 100 MG DAILY NEEDED PRN 10/20 1600 AC PO Ezetimibe 10 MG DAILY 10/20 1000 AC 10/21 PO 0753 Heparin Sodium 5,000 UNIT Q8 10/19 2200 AC 10/21 (Porcine) SC 0516 Morphine Sulfate 2 MG Q6P PRN 10/19 1900 AC 10/20 IV 2314 Neomycin/Polymyxin/ 1 ALEXANDRO DAILY 10/19 2030 AC 10/21 Dexamethasone OPH 0754 Patient Medication 1 ED ONE ONE 10/20 1230 DC Teaching ED 10/20 1231 Polyethylene Glycol 17 GM DAILY 10/20 1552 AC 10/21 PO 0752 Senna 187 MG AT BEDTIME 10/20 2200 AC 10/20 PO 2134 Sotalol HCl 80 MG BID 03/30 1000 AC 10/21 PO 0753 Trimethobenzamide HCl 200 MG TID PRN 10/20 1999 AC 10/19 IM 2008 Laboratory Tests 10/20/17 0640: Troponin I Cancelled 10/20/17 0640: Anion Gap 8, Estimated GFR > 60, BUN/Creatinine Ratio 27.1 H, Troponin I < 0.01 , CBC w Diff NO MAN DIFF REQ, RBC 3.18 L, MCV 95.3, MCH 32.3 H, MCHC 33.8, RDW 14.5, MPV 8.4, Gran % 81.5 H, Lymphocytes % 12.3 L, Monocytes % 5.9, Eosinophils % 0, Basophils % 0.3, Absolute Granulocytes 8.6 H, Absolute Lymphocytes 1.3, Absolute Monocytes 0.6, Absolute Eosinophils 0, Absolute Basophils 0 10/20/17 0220: Urine Color YEL, Urine Clarity CLEAR, Urine pH 5.5, Ur Specific [place] >= 1.030 , Urine Protein NEG, Urine Ketones NEG, Urine Nitrite NEG, Urine Bilirubin NEG, Urine Urobilinogen 0.2, Ur Leukocyte Esterase NEG, Ur Microscopic EXAM NOT REQUIRED, Urine Hemoglobin NEG, Urine Glucose 100 H 10/19/17 2300: Troponin I < 0.01 10/19/17 1900: Anion Gap 11, Estimated GFR > 60, BUN/Creatinine Ratio 30.0 H, Magnesium 1.8, TSH &T3 &Free T4 Intrp 1.370, CBC w Diff NO MAN DIFF REQ, RBC 3.61 L, MCV 96.2, MCH 31.3 H, MCHC 32.5 L, RDW 14.0, MPV 8.2, Gran % 96.3 H, Lymphocytes % 3.5 L, Monocytes % 0.2 L, Eosinophils % 0, Basophils % 0, Absolute Granulocytes 12.9 H, Absolute Lymphocytes 0.5 L, Absolute Monocytes 0 L, Absolute Eosinophils 0, Absolute Basophils 0 Vital Signs Date Time Temp Pulse Resp B/P B/P Pulse O2 O2 Flow FiO2 Mean Ox Delivery Rate 10/21 0647 98.9 57 20 164/85 92 10/20 2338 98.9 52 18 136/68 94 Room Air 10/20 1411 99.3 64 18 120/60 94 Room Air Intake & Output 10/21 1600 10/21 0800 10/21 0000 Intake Total 200 360 Output Total Balance 200 360 Intake, Oral 200 360 Patient 136 lb Weight Weight Bed scale Measurement Method
== END 2017-10-21 12:45 ==
LOC: STS 01:05 → PACUH 15:59 → 1NO 15:59 → ENRESERV 16:35 → 1NO 18:33 → ENPENDDIS 10-21 11:58 → 1NO 10-21 12:45
PROVIDERS: Internal Medicine Endocrinology, Diabetes & Metabolism
DX: Z42.8 Encounter for other plastic and reconstructive surgery following medical procedure or healed injury (principal); Z85.820 Personal history of malignant melanoma of skin; I10 Essential (primary) hypertension; E78.5 Hyperlipidemia, unspecified; Z86.73 Personal history of transient ischemic attack (TIA), and cerebral infarction without residual deficits; I49.3 Ventricular premature depolarization; E86.0 Dehydration; I34.0 Nonrheumatic mitral (valve) insufficiency; Z79.01 Long term (current) use of anticoagulants; I97.89 Other postprocedural complications and disorders of the circulatory system, not elsewhere classified; I47.1 Supraventricular tachycardia
CPT/HCPCS: 6020; 36592; 71045; 81003; 82436; 93005; 93010; 93306; 96372; 96375; 96376; C9399; G0378; J0131; J0690; J1644; J3250

== ENCOUNTER → 2017-11-09 | Day surgery (SDC) | payer OTHER ==
[~2017-11-09] VITALS: Ht 157.5 cm; Wt 56.7 kg
[~2017-11-09] MED LIST changes: +ATORVASTATIN CA20 M1 PO; +BACITRACIN ZIN120 GM TOP; +BETAPACE80 MG PO; +LISINOPRIL5 M1 PO; +METOPROLOL TART25 M1 PO; +TYLENOL WITH C1 EACH PO
--- NOTE | 2017-11-09 16:49 | Operative Report ---
Operative/Inv Procedure Report Surgery Date: 11/09/17 Name of Procedure: Inset paramedian forehead flap debridement scar right lateral nose rotation advancement nasal skin flap inset into forehead residual flap debridement central forehead healing wound Pre-Operative Diagnosis: Status post paramedian forehead flap and cheek advancement, history of melanoma nose Post-Operative Diagnosis: Same Estimated Blood Loss: peg Surgeon/Windows Server Administrator: Francis Harris MD Anesthesia: laryngeal mask airway Operative/Procedure Note Note: Brianda family were counseled in regards to the procedure the alternatives risks and expected outcomes as relates to a second stage reconstruction of the nasal skin. The patient extensive defect following excision of melanoma and has had a paramedian forehead flap rotated into position approximately 3 weeks ago. We are here for an inset partial defatting debridement of wounds and inset of the proximal portion of the residual flap to widen the eyebrow position. It was discussed in great detail with the patient and her daughter and informed consent was signed. Talked about ischemia developing the flap definitely visible permanent scarring possibly numbness of the forehead and will need additional procedure to defat the distal end of the flap. He agreed informed consent was signed. She was taken to the operative placed supine on the table. Venodyne boots are placed anesthesia was established intravenous antibiotics given. The face was prepped and draped in usual sterile fashion. All suture material was removed prior to the prep. Debridement was carried out sharply of these upper central forehead defect back to punctate edges. Flap was divided midportion where needed. The residual proximal portion of the flap was elevated from the scar bed debrided around the periphery. The wound was opened and the residual proximal flap was inset and closed with multiple layers providing a wider brow to brow distance. The flap was elevated approximately 50% of its inset length. Defatting was carried out in the usual fashion. I was excised from the right lateral portion where was extensive with the flap to fill in the small additional space. Wound was copiously irrigated multiple time and multilayer suturing of 600 sutures was used to reapproximate the proximal portion of the remaining nasal skin flap. Was no evidence of critical ischemia throughout the procedure. Wounds were closed with additional Steri-Strips.
== END ==
LOC: STS 03:02
DX: Z42.8 Encounter for other plastic and reconstructive surgery following medical procedure or healed injury (principal); Z85.820 Personal history of malignant melanoma of skin; I10 Essential (primary) hypertension; I34.0 Nonrheumatic mitral (valve) insufficiency; Z79.01 Long term (current) use of anticoagulants; Z86.73 Personal history of transient ischemic attack (TIA), and cerebral infarction without residual deficits
CPT/HCPCS: J0690; J2250